=== PATIENT | female | born 1980 | race Caucasian/White ===

== ENCOUNTER 2017-05-23 10:37 | Inpatient (IN) | payer OTHER ==
--- NOTE | 2017-05-23 06:30 | PDHPUP ---
History & Physical Update H&P update statement: This history and physical update is based on an assessment of the patient which was completed after admission or registration (within 24 hours), but prior to the surgery/procedure. H&P update: H&P reviewed & patient examined, no change in patient's condition since H&P completed
[2017-05-23] MEDS ORDERED: ceFAZolin 2 GM/DEXTROSE 100 ML IV ONE (11:11)
[2017-05-23] MEDS ORDERED: LR 1,000 ML IV ONE (11:18)
[2017-05-23] MEDS ORDERED: VANCOMYCIN HCL/NORMAL SALINE 250 ML IV ONE (12:30)
[2017-05-23] MEDS ORDERED: VANCOMYCIN 1 GM in NS 250 ML IV ONE (12:30)
[2017-05-23] MEDS ORDERED: CHLORHEXIDINE GLUC HIBICLENS 118 ML BTL TP ONE (12:40)
[2017-05-23] MEDS ORDERED: THROMBIN (BOVINE) 5,000 UNIT VIAL TP ONE (12:41)
[2017-05-23] MEDS ORDERED: BUPIVACAINE 0.25% 30 ML SDV ONE (12:41)
[2017-05-23] MEDS ORDERED: BACITRACIN 50,000 UNITS/10 ML SYR IRR ONE (12:42)
--- NOTE | 2017-05-23 13:06 | PDANEPAE ---
ANE History of Present Illness 36 yo F with lumbar radiculopathy here for L 2-4 TLIF ANE Past Medical History - Cardiovascular History Hx Hypertension: No Hx Arrhythmias: No Hx Chest Pain: No Hx Coronary Artery / Peripheral Vascular Disease: No Hx CHF / Valvular Disease: No Hx Palpitations: No - Pulmonary History Hx COPD: No Hx Asthma/Reactive Airway Disease: No Hx Recent Upper Respiratory Infection: No Hx Oxygen in Use at Home: No Hx Sleep Apnea: No Sleep Apnea Screening Result - Last Documented: Negative - Neurologic History Hx Cerebrovascular Accident: No Hx Seizures: No Hx Dementia: No Neurologic History Comment: 3 DISCECTOMIES. OCCAS MIGRAINES - Endocrine History Hx Diabetes: No - Renal History Hx Renal Disorders: No - Liver History Hx Hepatic Disorders: Yes Hepatic History Comment: [place] - Neurological & Psychiatric Hx Hx Neurological and Psychiatric Disorders: Yes Neurological / Psychiatric History Comment: ANXIETY & DEPRESSION - Cancer History Hx Cancer: No - Congenital Disorder History Hx Congenital Disorders: No - GI History Hx Gastrointestinal Disorders: No - Other Health History Other Health History: NONE - Chronic Pain History Chronic Pain: Yes (LOWER BACK) - Surgical History Prior Surgeries: L 3/4 TLIF. I&D OF LUMBAR WOUND WITH BRANDON 09/25/14. L4-5, L5- S1 TLIF WITH JJ. 3 DISCECTOMIES L4-5. BILATERAL KNEE SCOPE. LAP [place] ANE Review of Systems - Exercise capacity METS (RN): 6 METS ANE Patient History - Allergies Allergies/Adverse Reactions: cephalexin [From Keflex] Allergy (Severe, Verified 05/23/17 12:06) Anaphylaxis Cephalosporins Allergy (Severe, Verified 05/23/17 12:06) Anaphylaxis amoxicillin Allergy (Intermediate, Verified 04/06/15 19:38) abd pain ceftriaxone Allergy (Verified 04/06/15 19:37) neutropenia doxycycline Allergy (Verified 04/06/15 19:37) neutropenia - Home Medications Home medications: home medication list seen and reviewed Home Medications: Topiramate 50 mg PO DAILY 06/01/15 [Last Taken 06/08/15 09:00] Clonazepam 05/10/17 [Last Taken Unknown] Herbals/Supplements -Info Only 05/10/17 [Last Taken Unknown] Hydrocodon-Acetaminophen 5-325 05/10/17 [Last Taken Unknown] Ibuprofen 05/10/17 [Last Taken Unknown] Robaxin 500 mg (*) 05/10/17 [Last Taken Unknown] Tylenol 05/10/17 [Last Taken Unknown] - NPO status NPO Since - Liquids (Date): 05/22/17 NPO Since - Liquids (Time): 20:00 NPO Since - Solids (Date): 05/22/17 NPO Since - Solids (Time): 20:00 - Anes Hx Anes Hx: no prior problems - Smoking Hx Smoking Status: Never smoked - Alcohol Use Alcohol Use: Rarely - Family Anes Hx Family Anes Hx: none Family Hx Anesthesia Complications: NONE ANE Labs/Vital Signs - Vital Signs Blood Pressure: 119/76 Heart Rate: 74 Respiratory Rate: 18 O2 Sat (%): 96 Height: 160.02 cm Weight: 56.699 kg ANE Physical Exam - Airway Neck exam: FROM Mallampati Score: Class 2 Mouth exam: normal dental/mouth exam - Pulmonary Pulmonary: no respiratory distress, clear to auscultation - Cardiovascular Cardiovascular: regular rate and rhythym, no murmur, rub, or gallop - ASA Status ASA Status: II ANE Anesthesia Plan Anesthesia Plan: general endotracheal anesthesia
[2017-05-23] MEDS ORDERED: MIDAZOLAM 2 MG/2 ML VIAL IVP ONE (13:07)
[2017-05-23] MEDS ORDERED: REMIFENTANIL HCL 1 MG VIAL ONE ×2 (13:11→16:32)
[2017-05-23] MEDS ORDERED: PROPOFOL/EMULSION 500 MG/50 ML BOTTLE IV ONE ×2 (13:11→16:32)
[2017-05-23] MEDS ORDERED: fentaNYL 100 MCG/2 ML INJ ONE ×2 (13:11→18:14)
[2017-05-23] MEDS ORDERED: PROPOFOL 200 MG/20 ML VIAL ONE (13:11)
[2017-05-23] MEDS ORDERED: HYDROCODONE/APAP 5/325 TAB PO PRN (13:28)
[2017-05-23] MEDS ORDERED: MAGNESIUM HYDROXIDE 30 ML UDCUP PO PRN (13:28)
[2017-05-23] MEDS ORDERED: POLYETHYLENE GLYCOL 3350 17 GM PKT PO PRN (13:28)
[2017-05-23] MEDS ORDERED: NALOXONE HCL 0.4 MG/ML INJ IVP PRN ×2 (13:28→18:18)
[2017-05-23] MEDS ORDERED: LACTULOSE 20 GM/30 ML UDCUP PO PRN (13:28)
[2017-05-23] MEDS ORDERED: BISACODYL 10 MG SUPP PR PRN (13:28)
[2017-05-23] MEDS ORDERED: ONDANSETRON 4 MG/2 ML VIAL IVP PRN ×2 (13:28→18:18)
[2017-05-23] MEDS ORDERED: diphenhydrAMINE 25 MG CAP PO PRN (13:28)
[2017-05-23] MEDS ORDERED: PHENYLEPHRINE 10 MG/ML SDV ONE (14:09)
[2017-05-23] MEDS ORDERED: DESFLURANE 240 ML BOTTLE IH ONE (16:50)
[2017-05-23] MEDS ORDERED: HYDROmorphONE/DILAUDID 2 MG/ML INJ ONE (17:42)
[2017-05-23] MEDS: fentaNYL 100 MCG/2 ML INJ IVP PRN ×2 (18:15→18:25)
[2017-05-23] MEDS ORDERED: MEPERIDINE 25 MG/ML SYR IVP PRN (18:18)
[2017-05-23] MEDS ORDERED: OXYCODONE/APAP 5/325 TAB PO PRN (18:18)
--- NOTE | 2017-05-23 18:21 | POSTANESTH ---
Post Anesthetic Evaluation Cardiovascular Status: Normal, Stable, Similar to Pre-Op Cond Respiratory Status: Normal, Stable, Similar to Pre-op Cond. Level of Consciousness/Mental Status: Can Participate in Eval, Alert and Oriented Pain Control: Adequate, Prn Tx Ordered Nausea/Vomiting Control: Adequate, Prn Tx Ordered Complications Possibly Related to Anesthesia: None Noted
--- NOTE | 2017-05-23 18:21 | SOAPPROG ---
SOAP Progress Note Assessment/Plan: Post Op Visit S: Awake and alert. NAD. Pt with expected lower back pain O: AFVSS/PERRLA/EOMI no droop CN 2-12 grossly intact +lt touch 5/5 BUE/BLE = CDI MANJINDER in place A/P: 36 yo female that is s/p L2/3 TLIF and tie in fusion -orders in place -brace fit already -call with any questions or concerns -pt seen by Dr Oakes as well 05/23/17 18:17 Objective: Vital Signs Temp Pulse Resp BP Pulse Ox 37.1 C 74 18 119/76 96 05/23/17 11:33 05/23/17 13:06 05/23/17 13:06 05/23/17 13:06 05/23/17 13:06 ICD10 Worksheet Patient Problems: Problems Problem Status Onset Arthrodesis status Acute Low back pain Acute Lumbosacral stenosis Acute
[2017-05-23] MEDS: HYDROmorphONE/DILAUDID 1 MG/ML SYR IVP PRN ×2 (18:25→18:46)
[2017-05-23] MEDS ORDERED: HYDROmorphONE/DILAUDID 1 MG/ML SYR ONE ×2 (18:25→18:56)
[2017-05-23] MEDS ORDERED: ONDANSETRON 4 MG/2 ML VIAL ONE (18:28)
[2017-05-23] MEDS ORDERED: PROMETHAZINE HCL 25 MG/ML INJ ONE (18:46)
[2017-05-23] MEDS: PROMETHAZINE HCL 25 MG/ML INJ IVP PRN ×2 (18:48→19:03)
[2017-05-23] MEDS ORDERED: DIAZEPAM 10 MG/2 ML SYR ONE (19:14)
[2017-05-23] MEDS ORDERED: SCOPOLAMINE HYDROBROMIDE 1 MG/3 DAYS PATCH TD ONE ×2 (19:14→19:30)
[2017-05-23] MEDS: DIAZEPAM 10 MG/2 ML SYR IVP PRN (19:24)
[2017-05-23] MEDS: NS 1,000 ML IV SCH (20:41)
[2017-05-23] MEDS: HYDROmorphONE/DILAUDID 6 MG/30 ML PCA IV PRN (20:42)
[2017-05-23] MEDS: ACETAMINOPHEN 500 MG TAB PO SCH ×3 (22:19→22:53)
[2017-05-23] MEDS: FAMOTIDINE 20 MG TAB PO SCH (22:20)
[2017-05-23] MEDS: SENNOSIDES/DOCUSATE SODIUM TAB PO SCH (22:20)
[2017-05-24] MEDS: DIAZEPAM 5 MG TAB PO PRN (01:41)
[2017-05-24] MEDS ORDERED: VANCOMYCIN HCL/NORMAL SALINE 250 ML IV ONE (02:00)
[2017-05-24] MEDS ORDERED: NS BOLUS 1000 ML (Wide open) IV ONE (03:24)
[2017-05-24] MEDS: HYDROmorphONE/DILAUDID 6 MG/30 ML PCA IV PRN ×3 (03:48→23:34)
--- NOTE | 2017-05-24 05:40 | GOP ---
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 PROCEDURE PERFORMED: FINDINGS: ESTIMATED BLOOD LOSS: 150 cc. 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 She had a long-standing history of pathology at this level and it was not a surprise, however, it did come sooner than any of us wanted to see. She developed bilateral lumbosa cral radiculopathy left greater than right and terrible low back pain and began to require narcotics to function. 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 Pain got dramatically worse. She was even seen by infectious disease because she had a prior history of Propionibacterium acnes infection from 1 of her prior surgeries but it was felt that she was not currently infected. Their MRI did not suggest any infection. The risk of screw and hardwar e malposition, malfunction, nerve injury, spinal fluid leak, recurrent infection, pseudoarthrosis ad jacent segment disease were discussed. She may have to have surgery at the L1-2 level at some point in the future. She wanted to proceed despite these risks. DESCRIPTION OF PROCEDURE: Patient was taken to the operating room, placed in supine position. Gene ral anesthesia was begun. She was flipped prone on the Chaitanya table. Care was taken to pad all po ints of contact. Her back was sterilely prepped and draped in usual fashion. We actually prepped h er back 8 separate times and allowed it to dry in an effort to avoid recurrent infection. We made a midline incision from the spinous process of L1 down to the spinous process of L4. The subcutaneou s tissue was dissected using Bovie cautery down to the fascia and a subperiosteal dissection was mad e down the inferior lamina of L1, the lamina of L2 was exposed, the L1-2 facet joint was exposed, th e L2 transverse process was exposed. The L3 and L4 pedicle screws were exposed. We removed the sof t tissue above her prior hardware, took a carbide drill bit and cut through the mane between the L3 a nd L4 screws. We then popped the mane out of the tulips. We removed all 4 cap screws at L3 and L4. After cutting the mane, we then removed the L3 screws. These were attained and given back to the pa tient. We then prepped the area around the prior mane for acceptance of a connecting adapter. We pr epared for the connecting adapter by cleaning out the bone around the mane. There was solid posterol ateral fusion mass present on each side. We then attached a stealth reference frame, performed an O -arm spin, and using frameless Stealth stereotaxy, we placed pedicle screws bilaterally at L2. The left pedicle was exceptionally small. We chose a 5 x 45 mm screw. The right pedicle was also very small but we chose a 5.5 mm screw on the right-hand side. We did take additional time for our hardw are and instrumentation in this case because of her pedicle anatomy. We then took 40 mm rods, cut a small notch out of the bottom of the mane, shortening them to about 35 mm each. We inserted the con nector onto the old mane system, transitionally tightened this to hold the old mane, placed a new mane down into the connector and into the Tulip of the new screw. We placed set screws into all of these . Six cut set screws were used; 2 in the connector, 2 in the new screws. We also then replaced the set screws using new set screws and the L4 pedicle screws. We then removed all the soft tissue bon e at L2-3, introduced the operating microscope harvested the inferior L2 spinous process. We preser sandeep the rostral L2 spinous process. We then harvested the entire L3 spinous process that had been p reserved from the prior case, drilled bilateral laminectomies at L2, 3, and harvested all this bone for autologous grafting purposes. We then, under the microscope, opened ligamentum flavum and perfo rmed a decompression. There was very severe spinal stenosis present. We worked our way down and re moved the rostral aspect of the L3 lamina although we did preserve still part of the rostral arch of L3. We decompressed the left and then the right and decompressed from the edge of the thecal sac t o edge of thecal sac. We removed the left L2-3 facet joint complex. We went to the patient's right -hand side where the MRI did suggest that there was disc protrusion on the right-hand side underneat h the traversing L3 nerve root. We swept the nerve root medially and indeed there was very signific ant sub annular bulge at L2-3. We incised the outer wall of the L2-3 disk and removed this sub nay lar bulge and the thecal sac relaxed nicely. We then went to the left-hand side where we swept the thecal sac medially and here too centrally. There was a large subannular disk bulge in the L2-3 dis k and this also was removed. We then incised the disk, removed the disk completely and the cartilag inous endplates. We roughened the subchondral bone to create arthrodesis. We chose an expandable 7 x 23 mm device, packed with bone morphogenic protein, placed bony autograft into the disk space and inserted the device and under fluoroscopic guidance we elevated the device to 11 mm. It is nicely seated in the disk space. We were happy with this location and there was indeed lumbar lordosis pre sent. We then decorticated all remaining posterolateral bone bilaterally, placed bone morphogenic p rotein posterolaterally bilaterally followed by bone autograft. We then placed a subfascial drain, and then closed the incision in multiple layers using Vicryl sutures. The patient tolerated the pro cedure well. POSTOPERATIVE DIAGNOSIS: Removal posterior segmental instrumentation of the lumbar spine from a vanessa or L3 to S1 fusion (92739), posterior lateral intervertebral arthrodesis at L2-3 (04235), instrument ation across a single interspace at L2-3 (86536), spinal stereotaxy, microscope, same incision bone graft harvest, placement of biomechanical intervertebral device L2-3. COMPLICATIONS: None. /[id number]/MODL
[2017-05-24] MEDS: ACETAMINOPHEN 500 MG TAB PO SCH ×3 (06:29→21:41)
[2017-05-24] MEDS ORDERED: clonazePAM 1 MG TAB PO PRN (07:34)
[2017-05-24] MEDS ORDERED: FLUTICASONE NASAL 120 SPRAYS/16 GM MDI EACHNARE PRN (07:34)
[2017-05-24] MEDS ORDERED: PHARMACY PAIN CONSULT 1 EA MISC SCH (07:45)
--- NOTE | 2017-05-24 07:45 | NEUSURGPN ---
Date of Surgery: 05/23/17 Post Op Day: 1 Assessment/Plan: Assessment: 36 yo female that is s/p L2/3 TLIF and tie in fusion POD #1 Plan: -s/p fusion: pt with expected lower back pain, pt with right LE pain as well as LBP at 8/10 -post op xrays pending -brace when out of bed -pain consult ordered from pharmacy -increased Topamax to BID as well as started MSContin in hopes of some pain control -PT/OT ordered -PASTE MIXER LIQUID on at this time -orders in place -pt with some LUE swelling will d/w Dr Oakes about this as well -call with any questions or concerns -pt seen by Dr Oakes as well 05/23/17 18:17 Subjective: Awake and alert. NAD. Eating/drinking and voiding. No f/c/n/v/d. Objective: AFVSS/PERRLA/EOMI no droop CN 2-12 grossly intact +lt touch 5/5 BUE/BLE = CDI MANJINDER in place Neuro Check Frequency: per routine Urinary Catheter in Place: No - Physician Discussed Patient with Dr.: Champ Patient Seen by : Champ Neurosurgery Physical Exam - Vitals, I&O, Labs I and O 05/23/17 05/24/17 05/25/17 05:59 05:59 05:59 Intake Total 3005 Output Total 590 Balance 2415 Weight 56.699 kg Intake: Oral (ml) 5 IV Intake (ml) 3000 Output: Urine (ml) 150 Catheter 150 Estimated Blood Loss (ml) 150 MANJINDER Drain Output (ml) 290 #1 Posterior Back Chaitanya 290 Qureshi Vital Signs Temp Pulse Resp BP Pulse Ox 37.2 C 66 18 97/50 L 99 05/24/17 07:37 05/24/17 07:37 05/24/17 07:37 05/24/17 07:37 05/24/17 07:37 ICD10 Worksheet Patient Problems: Problems Problem Status Onset Arthrodesis status Acute Low back pain Acute Lumbosacral stenosis Acute
[2017-05-24] MEDS: morphINE SR 15 MG TAB PO SCH ×2 (07:54→19:50)
[2017-05-24] MEDS: FAMOTIDINE 20 MG TAB PO SCH ×2 (07:54→19:49)
[2017-05-24] MEDS: SENNOSIDES/DOCUSATE SODIUM TAB PO SCH ×2 (07:55→19:50)
[2017-05-24] MEDS: DIAZEPAM 10 MG/2 ML SYR IVP PRN ×4 (07:56→20:14)
[2017-05-24] MEDS ORDERED: morphINE SR 15 MG TAB PO SCH (09:00)
[2017-05-24] MEDS ORDERED: NON-FORMULARY NEW DRUG (Topiramate [Topiramate] 50 MG) PO SCH ×2 (09:00)
[2017-05-24] MEDS: TOPIRAMATE 25 MG TAB PO SCH ×2 (09:48→19:50)
[2017-05-24] MEDS ORDERED: NS 1,000 ML IV ONE (10:30)
[2017-05-24] MEDS: PROMETHAZINE HCL 25 MG/ML INJ IV PRN ×2 (11:06→17:41)
--- NOTE | 2017-05-24 16:22 | ASMTCASEMG ---
Discharge Plan Comments Coordination Status Comments Notes: Pt had planned sx. OT eval pending. PT rec home vs. outpatient. CM to follow for d/c needs. Date Signed: 05/24/2017 04:21 PM Electronically Signed By:Sarai George
[2017-05-24] MEDS: METHOCARBAMOL 750 MG TAB PO PRN (23:53)
[2017-05-25] MEDS: oxyCODONE IR 5 MG TAB PO PRN ×5 (00:23→21:11)
[2017-05-25] MEDS: PROMETHAZINE HCL 25 MG/ML INJ IV PRN ×3 (00:23→17:52)
[2017-05-25] MEDS: ONDANSETRON DISINTEGRATING 4 MG TAB PO PRN ×2 (03:49→19:30)
[2017-05-25] MEDS: NS 1,000 ML IV SCH (03:50)
[2017-05-25] MEDS: ACETAMINOPHEN 500 MG TAB PO SCH ×3 (05:59→21:10)
[2017-05-25] MEDS: METHOCARBAMOL 750 MG TAB PO PRN ×2 (08:11→17:52)
[2017-05-25] MEDS: morphINE SR 15 MG TAB PO SCH ×4 (08:11→21:11)
[2017-05-25] MEDS ORDERED: oxyCODONE IR 5 MG TAB PO PRN (08:15)
--- NOTE | 2017-05-25 08:18 | NEUSURGPN ---
Date of Surgery: 05/23/17 Post Op Day: 2 Assessment/Plan: Assessment: 36 yo female that is s/p L2/3 TLIF and tie in fusion POD #2 Plan: -post op xrays: hardware in good placement -brace when out of bed -pain consult ordered from pharmacy -increased Topamax to BID. Today 05/25: Increase MS Contin 15 mg to TID and increased frequency of Oxycodone to every 3 hours, attempt to wean SAFETY DIRECTOR today -PT/OT ordered -remove MANJINDER drain -call with any questions or concerns -pt seen by Dr Oakes as well Subjective: Continues to have localized back pain and right anterior thigh pain. Objective: Awake. Alert. PERRL. EOMI Facial expression symmetrical Muscle strength full at 5/5 Sensation intact Incision with dressing c/d/i - Physician Patient Seen by : Champ Neurosurgery Physical Exam - Vitals, I&O, Labs I and O 05/24/17 05/25/17 05/26/17 05:59 05:59 05:59 Intake Total 3105 500 Output Total 690 1685 Balance 2415 -1185 Weight 56.699 kg Intake: Oral (ml) 105 500 IV Intake (ml) 3000 Output: Urine (ml) 250 1625 Catheter 150 Toilet 100 1625 Estimated Blood Loss (ml) 150 MANJINDER Drain Output (ml) 290 60 #1 Posterior Back Chaitanya 290 60 Qureshi Other: Intake Quantity No Yes Sufficient Number of Voids Toilet 1 Vital Signs Temp Pulse Resp BP Pulse Ox 37.3 C 77 16 109/76 96 05/25/17 05:55 05/25/17 08:00 05/25/17 08:00 05/25/17 08:00 05/25/17 08:00 ICD10 Worksheet Patient Problems: Problems Problem Status Onset Arthrodesis status Acute Low back pain Acute Lumbosacral stenosis Acute
[2017-05-25] MEDS: TOPIRAMATE 25 MG TAB PO SCH ×2 (09:27→21:11)
[2017-05-25] MEDS: FAMOTIDINE 20 MG TAB PO SCH ×2 (09:28→21:10)
[2017-05-25] MEDS: SENNOSIDES/DOCUSATE SODIUM TAB PO SCH ×2 (09:28→21:12)
[2017-05-25] MEDS: DIAZEPAM 5 MG TAB PO PRN ×2 (11:43→20:29)
[2017-05-25] MEDS: ACET/CAFFEINE/BUTA FIORICET 1 EACH TAB PO PRN ×2 (13:28→19:39)
[2017-05-25] MEDS ORDERED: MAGNESIUM CITRATE 300 ML BOTTLE PO ONE (17:00)
[2017-05-26] MEDS: oxyCODONE IR 5 MG TAB PO PRN ×5 (00:01→15:36)
[2017-05-26] MEDS: PROMETHAZINE HCL 25 MG/ML INJ IV PRN ×3 (00:02→21:38)
[2017-05-26] MEDS: DIAZEPAM 5 MG TAB PO PRN ×3 (02:37→21:39)
[2017-05-26] MEDS: ONDANSETRON DISINTEGRATING 4 MG TAB PO PRN (02:45)
[2017-05-26] MEDS: ACETAMINOPHEN 500 MG TAB PO SCH ×3 (04:44→20:13)
[2017-05-26] MEDS: SCOPOLAMINE HYDROBROMIDE 1 MG/3 DAYS PATCH TD SCH (05:50)
[2017-05-26] MEDS: SENNOSIDES/DOCUSATE SODIUM TAB PO SCH ×2 (09:06→20:11)
[2017-05-26] MEDS: FAMOTIDINE 20 MG TAB PO SCH ×2 (09:06→20:10)
[2017-05-26] MEDS: morphINE SR 15 MG TAB PO SCH ×3 (09:07→20:11)
[2017-05-26] MEDS: ENOXAPARIN 40 MG/0.4 ML SYR SC SCH (09:07)
[2017-05-26] MEDS: TOPIRAMATE 25 MG TAB PO SCH ×2 (09:07→20:12)
[2017-05-26] MEDS ORDERED: HYDROmorphONE/DILAUDID 2 MG TAB PO ONE (09:45)
--- NOTE | 2017-05-26 12:48 | SOAPPROG ---
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 We tried some dilaudid this morning and that was very helpful in taking the edge off of her pain. We will persist in this and continue supporting her. Plan: 05/26/17 12:47 Subjective: Still terrible lbp and bilateral leg pain but the right leg is really the issue. pain meds are not working well Objective: Vital Signs Temp Pulse Resp BP Pulse Ox 36.8 C 72 16 112/65 94 05/26/17 07:35 05/26/17 07:35 05/26/17 07:35 05/26/17 11:40 05/26/17 11:40 05/25/17 05/26/17 05/27/17 05:59 05:59 05:59 Intake Total 500 1000 Output Total 1685 800 Balance -1185 200 she has good rle strength in IP, quad, ta, pf ehl. knee jerk is ok. ICD10 Worksheet Patient Problems: Problems Problem Status Onset Arthrodesis status Acute Low back pain Acute Lumbosacral stenosis Acute
[2017-05-26] MEDS: HYDROmorphONE/DILAUDID 2 MG TAB PO PRN ×3 (13:00→18:27)
[2017-05-27] MEDS: HYDROmorphONE/DILAUDID 2 MG TAB PO PRN ×8 (04:14→22:12)
[2017-05-27] MEDS: ACETAMINOPHEN 500 MG TAB PO SCH ×3 (04:14→20:32)
[2017-05-27] MEDS: DIAZEPAM 5 MG TAB PO PRN ×4 (04:14→22:13)
[2017-05-27] MEDS: SENNOSIDES/DOCUSATE SODIUM TAB PO SCH ×2 (08:14→20:08)
[2017-05-27] MEDS: TOPIRAMATE 25 MG TAB PO SCH ×2 (08:14→20:08)
[2017-05-27] MEDS: FAMOTIDINE 20 MG TAB PO SCH ×2 (08:14→20:09)
[2017-05-27] MEDS: ENOXAPARIN 40 MG/0.4 ML SYR SC SCH (08:15)
[2017-05-27] MEDS: morphINE SR 15 MG TAB PO SCH ×3 (08:16→22:13)
[2017-05-27] MEDS: ONDANSETRON DISINTEGRATING 4 MG TAB PO PRN ×2 (08:18→18:06)
--- NOTE | 2017-05-27 10:22 | ASMTCMCOM ---
CM Note CM Note Notes: OT recommending HC, PT rec outpt therapy. Met with pt and . Pt prefers to drive to outpt therapy. No other needs identified. Date Signed: 05/27/2017 10:22 AM Electronically Signed By:Joana Bravo
[2017-05-27] MEDS: METHOCARBAMOL 750 MG TAB PO PRN (10:34)
--- NOTE | 2017-05-27 12:00 | SOAPPROG ---
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 She still has a variant of right meralgia paresthetica with pain in the anterior thigh and quad and sensitivity to touch. This is mirrored on the left but right is >> left. We will continue to work on pain control and with therapies. cristino great. Plan: 05/26/17 12:47 05/27/17 11:58 Subjective: Made some progress with oral dilaudid yesterday. Still very significant pain but improved and slept better. Objective: Vital Signs Temp Pulse Resp BP Pulse Ox 37.0 C 80 18 108/66 97 05/27/17 07:48 05/27/17 07:48 05/27/17 07:48 05/27/17 07:48 05/27/17 07:48 05/26/17 05/27/17 05/28/17 05:59 05:59 05:59 Intake Total 1000 1075 Output Total 800 Balance 200 1075 moving legs well. some left leg weakness stable. ICD10 Worksheet Patient Problems: Problems Problem Status Onset Arthrodesis status Acute Low back pain Acute Lumbosacral stenosis Acute
[2017-05-27] MEDS: PROMETHAZINE HCL 25 MG/ML INJ IV PRN (22:15)
[2017-05-28] MEDS: HYDROmorphONE/DILAUDID 2 MG TAB PO PRN ×7 (02:32→22:47)
[2017-05-28] MEDS: DIAZEPAM 5 MG TAB PO PRN ×2 (02:33→19:17)
[2017-05-28] MEDS: ACETAMINOPHEN 500 MG TAB PO SCH ×3 (06:36→22:47)
[2017-05-28] MEDS: ACET/CAFFEINE/BUTA FIORICET 1 EACH TAB PO PRN (08:55)
[2017-05-28] MEDS: FAMOTIDINE 20 MG TAB PO SCH ×2 (08:55→19:16)
[2017-05-28] MEDS: TOPIRAMATE 25 MG TAB PO SCH ×2 (08:56→19:16)
[2017-05-28] MEDS: morphINE SR 15 MG TAB PO SCH ×3 (08:56→22:47)
[2017-05-28] MEDS: SENNOSIDES/DOCUSATE SODIUM TAB PO SCH ×2 (08:56→19:16)
[2017-05-28] MEDS: ENOXAPARIN 40 MG/0.4 ML SYR SC SCH (08:57)
--- NOTE | 2017-05-28 10:23 | SOAPPROG ---
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 She still has a variant of right meralgia paresthetica with pain in the anterior thigh and quad and sensitivity to touch. This is mirrored on the left but right is >> left. We will continue to work on pain control and with therapies. xrayslook great. She showered yesterday and generally is improving. She needed some IV pain meds last night but her need for IV meds is decreasing. We will add a lidocaine patch on the right thigh. Plan: 05/26/17 12:47 05/27/17 11:58 05/28/17 10:22 Subjective: Making progress. Still with terrible right anterior thigh pain. it responds to dilaudid. working with therapies Objective: Vital Signs Temp Pulse Resp BP Pulse Ox 36.7 C 65 15 99/63 L 96 05/28/17 07:29 05/28/17 07:29 05/28/17 07:29 05/28/17 07:29 05/28/17 07:29 05/27/17 05/28/17 05/29/17 05:59 05:59 05:59 Intake Total 1075 Balance 1075 moving legs well ICD10 Worksheet Patient Problems: Problems Problem Status Onset Arthrodesis status Acute Low back pain Acute Lumbosacral stenosis Acute
[2017-05-28] MEDS: ONDANSETRON DISINTEGRATING 4 MG TAB PO PRN ×3 (11:27→18:02)
[2017-05-28] MEDS: LIDOCAINE 5% 1 EA PATCH TD SCH (11:29)
[2017-05-28] MEDS: PROMETHAZINE HCL 25 MG/ML INJ IV PRN (19:19)
[2017-05-28] MEDS: PATCH REMOVAL 1 EA PATCH TD SCH (22:48)
[2017-05-29] MEDS: METHOCARBAMOL 750 MG TAB PO PRN ×3 (05:18→18:29)
[2017-05-29] MEDS: ONDANSETRON DISINTEGRATING 4 MG TAB PO PRN ×3 (05:18→19:44)
[2017-05-29] MEDS: ACETAMINOPHEN 500 MG TAB PO SCH ×3 (05:18→22:23)
[2017-05-29] MEDS: HYDROmorphONE/DILAUDID 2 MG TAB PO PRN ×7 (05:18→19:38)
--- NOTE | 2017-05-29 08:00 | NEUSURGPN ---
Date of Surgery: 05/23/17 Post Op Day: 6 Assessment/Plan: Assessment: 36 yo female that is s/p L2/3 TLIF and tie in fusion Plan: -brace when out of bed -Patient may discharge home today, pain is controlled with PO meds -removed dressing, leave steri strips in place -call with any questions or concerns pt seen by Dr Oakes as well Subjective: Patient still having right quad pain Objective: Awake. Alert. PERRL. EOMI Facial expression symmetrical Muscle strength BLE 5/5 Sensation intact Incision c/d/i Neuro Check Frequency: per routine Urinary Catheter in Place: No - Physician Discussed Patient with : Champ Patient Seen by : Champ Neurosurgery Physical Exam - Vitals, I&O, Labs I and O 05/28/17 05/29/17 05/30/17 05:59 05:59 05:59 Output Total 600 Balance -600 Output: Urine (ml) 600 Toilet 600 Other: Intake Quantity Yes Yes Sufficient Number of Voids Toilet 3 2 Vital Signs Temp Pulse Resp BP Pulse Ox 36.7 C 83 18 96/57 L 93 05/29/17 00:00 05/29/17 00:00 05/29/17 00:00 05/29/17 00:00 05/29/17 00:00 ICD10 Worksheet Patient Problems: Problems Problem Status Onset Arthrodesis status Acute Low back pain Acute Lumbosacral stenosis Acute
[2017-05-29] MEDS: FAMOTIDINE 20 MG TAB PO SCH ×2 (09:30→19:38)
[2017-05-29] MEDS: SENNOSIDES/DOCUSATE SODIUM TAB PO SCH ×2 (09:30→19:37)
[2017-05-29] MEDS: ENOXAPARIN 40 MG/0.4 ML SYR SC SCH (09:30)
[2017-05-29] MEDS: TOPIRAMATE 25 MG TAB PO SCH ×2 (09:30→19:38)
[2017-05-29] MEDS: SCOPOLAMINE HYDROBROMIDE 1 MG/3 DAYS PATCH TD SCH (09:31)
[2017-05-29] MEDS: LIDOCAINE 5% 1 EA PATCH TD SCH (09:31)
[2017-05-29] MEDS: morphINE SR 15 MG TAB PO SCH ×3 (09:46→22:23)
--- NOTE | 2017-05-29 12:28 | ASMTCMCOM ---
CM Note CM Note Notes: Pt medically stable for d/c, no CM d/c needs identified. Date Signed: 05/29/2017 12:27 PM Electronically Signed By:Sarai George
[2017-05-29] MEDS: DIAZEPAM 5 MG TAB PO PRN ×2 (14:16→22:24)
[2017-05-29 15:57] LABS: HEMATOCRIT 32.1 % (38.0-47.0)
[2017-05-29 18:14] LABS: % IMMATURE GRANULYOCYTES 0.3 % (0.0-1.1); ABSOLUTE IMMATURE GRANULOCYTES 0.02 10^3/uL (0.00-0.10); ADD DIFF? NO; ADD MORPH? NO; ADD SCAN? NO; ATYPICAL LYMPHOCYTE FLAG 0 (0-99); FRAGMENT RBC FLAG 0 (0-99); HEMATOCRIT 32.4 % (38.0-47.0); HEMOGLOBIN 10.6 g/dL (12.6-16.3); LEFT SHIFT FLG 0 (0-99); LIPEMIA HEMOLYSIS FLAG 80 (0-99); MEAN CELL HEMOGLOBIN 26.8 pg (27.9-34.1); MEAN CELL HEMOGLOBIN CONCENTR. 32.7 g/dL (32.4-36.7); MEAN PLATELET VOLUME 8.8 fL (8.7-11.7); PLATELET CLUMPS FLAG 10 (0-99); PLATELET COUNT 306 10^3/uL (150-400); RED BLOOD CELL COUNT 3.95 10^6/uL (4.18-5.33); RED CELL DISTRIBUTION WIDTH 12.1 % (11.5-15.2)
[2017-05-29] MEDS: PATCH REMOVAL 1 EA PATCH TD SCH (19:38)
[2017-05-29] MEDS: PROMETHAZINE HCL 25 MG/ML INJ IV PRN (20:57)
[2017-05-29] MEDS: LOPERAMIDE HCL 2 MG CAP PO PRN (22:24)
[2017-05-29 23:06] VITALS: PULSE 83
[2017-05-30] MEDS: HYDROmorphONE/DILAUDID 2 MG TAB PO PRN ×5 (01:10→10:44)
[2017-05-30] MEDS: LOPERAMIDE HCL 2 MG CAP PO PRN ×2 (03:22→10:44)
[2017-05-30] MEDS: ACETAMINOPHEN 500 MG TAB PO SCH (06:28)
[2017-05-30 07:31] VITALS: BP 109/74; RESP 18; TEMP 98.7; O2SAT 98
--- NOTE | 2017-05-30 08:37 | NEUSURGPN ---
Date of Surgery: 05/23/17 Post Op Day: 7 Assessment/Plan: Assessment: 36 yo female that is s/p L2/3 TLIF and tie in fusion Plan: -patient had increased malaise yesterday, mildly elevated crp and sed rate, normal wbc. Dr Oakes discussed results with Dr Sheehan. Patient remains afebrile, incision is CDI -patient has had diarrhea last night, encouraged PO intake to include yogurt with pro-biotics -Hold Senakot -brace when out of bed -Patient may discharge home today, pain is controlled with PO meds -leave steri strips in place -call with any questions or concerns pt seen by Dr Oakes as well Subjective: Patient feeling nauseous Objective: Awake. Alert. PERRL. EOMI Facial expression symmetrical Muscle strength BLE 5/5 Sensation intact Incision c/d/i Neuro Check Frequency: per routine Urinary Catheter in Place: No - Physician Discussed Patient with : Champ Neurosurgery Physical Exam - Vitals, I&O, Labs I and O 05/29/17 05/30/17 05/31/17 05:59 05:59 05:59 Output Total 600 Balance -600 Output: Urine (ml) 600 Toilet 600 Other: Intake Quantity Yes Yes Sufficient Number of Voids Toilet 2 2 Vital Signs Temp Pulse Resp BP Pulse Ox 37.1 C 83 18 109/74 98 05/30/17 07:28 05/29/17 23:05 05/30/17 07:28 05/30/17 07:28 05/30/17 07:28 Laboratory Results 05/29/17 18:12 ICD10 Worksheet Patient Problems: Problems Problem Status Onset Arthrodesis status Acute Low back pain Acute Lumbosacral stenosis Acute
[2017-05-30] MEDS: FAMOTIDINE 20 MG TAB PO SCH (08:39)
[2017-05-30] MEDS: TOPIRAMATE 25 MG TAB PO SCH (08:39)
[2017-05-30] MEDS: morphINE SR 15 MG TAB PO SCH (08:39)
[2017-05-30] MEDS: LIDOCAINE 5% 1 EA PATCH TD SCH (08:41)
[2017-05-30] MEDS: ENOXAPARIN 40 MG/0.4 ML SYR SC SCH (08:41)
[2017-05-30] MEDS: SENNOSIDES/DOCUSATE SODIUM TAB PO SCH (08:46)
[2017-05-30] MEDS ORDERED: GABAPENTIN 100 MG CAP PO SCH (09:00)
--- NOTE | 2017-05-30 09:17 | ASDISCHSUM ---
Discharge Information Plan Status:Home with No Needs Medically Cleared to Leave:05/29/2017 Discharge Date:05/29/2017 CM D/C Disposition:Home, Routine, Self-Care ADT D/C Disposition:Home, Routine, Self-Care Projected Discharge Date:05/29/2017 12:00 AM Transportation at D/C: Discharge Delay Reason: Follow-Up Date:05/29/2017 12:00 AM Discharge Slot: Final Diagnosis: Placement Information Patient Contact Information Contact Name:QIAN Relationship: Address:[address] City:[place] Alternate Phone: [facility]/Zip Code:[place] [address] Email: Financial Information Financial Class:HMO and PPO Plans Primary Plan Desc:[facility] Primary Plan Number:[id number] Secondary Plan Desc: Secondary Plan Number: Assessment Information [facility] Initial CM Assessment Discharge Plan Comments Coordination Status Comments Notes: Pt had planned sx. OT eval pending. PT rec home vs. outpatient. CM to follow for d/c needs. Date Signed: 05/24/2017 04:21 PM Electronically Signed By:Sarai George [facility] CM Progress Note CM Note CM Note Notes: OT recommending HC, PT rec outpt therapy. Met with pt and . Pt prefers to drive to outpt therapy. No other needs identified. Date Signed: 05/27/2017 10:22 AM Electronically Signed By:Joana Bravo [facility] CM Progress Note CM Note CM Note Notes: Pt medically stable for d/c, no CM d/c needs identified. Date Signed: 05/29/2017 12:27 PM Electronically Signed By:Sarai George Intervention Information
[2017-05-30] MEDS: METHOCARBAMOL 750 MG TAB PO PRN (10:43)
== END 2017-05-30 11:08 | disposition home or self-care (01) | DRG 460 ==
LOC: F3E 10:37 → F3N 19:57
PROVIDERS: ADMIT Neurological Surgery; ATTEND Neurological Surgery
PROC: 0QP004Z Removal of Internal Fixation Device from Lumbar Vertebra, Open Approach (ICD-10-PCS; principal; 2017-05-24)
PROC: 0SG00AJ Fusion of Lumbar Vertebral Joint with Interbody Fusion Device, Posterior Approach, Anterior Column, Open Approach (ICD-10-PCS; principal; 2017-05-24)
PROC: 0QB00ZZ Excision of Lumbar Vertebra, Open Approach (ICD-10-PCS; principal; 2017-05-24)
DX: M54.16 Radiculopathy, lumbar region (principal); M48.06 Spinal stenosis, lumbar region; M51.36 Other intervertebral disc degeneration, lumbar region; Z98.1 Arthrodesis status
CPT/HCPCS: 97110-GP; 97116-GP; 97162-GP; 97165-GO; 97530-GP; 97535-GO; C1713; J0171; J0690; J1170; J1650; J2250; J2370; J2405; J2550; J2704; J3010; J3370

== ENCOUNTER 2017-05-31 16:27 | Inpatient (IN) | payer OTHER ==
--- NOTE | 2017-05-31 17:49 | EDPHY ---
H & P Time Seen by Provider: 05/31/17 17:03 HPI/ROS: Chief complaint. Back pain HPI. 36-year-old female had the diskectomy and fusion of the lumbar spine on May 23. She was discharged from the hospital yesterday. Since then she has had increased pain to her low back. Subjective weakness to the left leg. Subjective fever and feels she has had chills. Nausea. Her leg weakness and sciatica were better after her surgery but have now seem to gotten worse again. No bowel or bladder symptoms. No sore throat or cough or chest discomfort or trouble breathing. No unusual leg pain or swelling other than the sciatica. ROS Constitutional. Fever and chills Eyes. no problems with vision ENT. no sore throat, no nasal drainage Cardiovascular. no chest pain Respiratory. no shortness of breath, no cough Abdominal. no abdominal pain, no nausea/vomiting, no diarrhea . no problems urinating MS. low back pain radiating into the left leg. Skin. no rash Lymph. no swollen glands Neuro. Left leg weakness. Difficulty walking. Past Medical/Surgical History: Past medical history depression, spinal stenosis, back surgery Social History: , nonsmoker, no alcohol Smoking Status: Never smoked Physical Exam: General Appearance: Alert well-developed female mild distress vital signs are stable. Heart rate 101. She is afebrile Eyes: Pupils equal and round no pallor or injection. ENT, Mouth: Mucous membranes are moist. Respiratory: There are no retractions, lungs are clear to auscultation. Cardiovascular: Regular rate and rhythm. Gastrointestinal: Abdomen is soft and nontender, no masses, bowel sounds normal. Neurological: Awake and alert, sensory and motor exams grossly normal. Skin: The incision appears without infection. Suture line intact. Musculoskeletal: Neck is supple nontender. Extremities symmetrical, full range of motion. Psychiatric: Patient is oriented X 3, there is no agitation. Constitutional: Initial Vital Signs Temperature (C) 37 C 05/31/17 16:28 Heart Rate 101 H 05/31/17 16:28 Respiratory Rate 18 05/31/17 16:28 Blood Pressure 130/87 H 05/31/17 16:28 O2 Sat (%) 97 05/31/17 16:28 O2 Delivery Mode Room Air Allergies/Adverse Reactions: cephalexin [From Keflex] Allergy (Severe, Verified 05/31/17 16:27) Anaphylaxis Cephalosporins Allergy (Severe, Verified 05/31/17 16:27) Anaphylaxis amoxicillin Allergy (Intermediate, Verified 05/31/17 16:27) abd pain ceftriaxone Allergy (Verified 05/31/17 16:27) neutropenia doxycycline Allergy (Verified 05/31/17 16:27) neutropenia Home Medications: Medication Instructions Recorded Acetaminophen [Tylenol ES 500 mg 500 mg PO Q6 PRN 05/10/17 (*)] Herbals/Supplements -Info Only 1 ea PO DAILY 05/10/17 Methocarbamol [Robaxin 500 mg (*)] 500 mg PO DAILY PRN 05/10/17 clonazePAM [klonoPIN (*)] 1 mg PO DAILY PRN 05/10/17 Fluticasone Nasal [Flonase Nasal 1 sprays NASAL DAILY PRN 05/23/17 [place]] [place]-3 Fatty Acids [Fish Oil 1000 1,000 mg PO TID 05/23/17 mg (*)] Acet/Caffeine/Buta Fioricet 1 each PO Q6HRS PRN #0 tab 05/29/17 [Fioricet (*)] Acetaminophen [Tylenol ES 500 mg 1,000 mg PO Q8HRS #0 tab 05/29/17 (*)] Diazepam [Valium 5 MG (*)] 5 mg PO Q4H PRN #60 tab 05/29/17 Gabapentin [Neurontin 100 MG (*)] 100 mg PO DAILY #60 cap 05/29/17 HYDROmorphone HCL [Dilaudid 2 mg 2 - 4 mg PO Q2 PRN #60 tab 05/29/17 (*)] Lidocaine 5% [Lidoderm 5% Patch 1 ea TD DAILY #14 patch 05/29/17 (*)] Methocarbamol [Robaxin 750 mg (*)] 750 mg PO QID PRN #60 tab 05/29/17 Ondansetron Odt [Zofran Odt 4 mg 4 - 8 mg PO Q6HRS PRN #20 tab 05/29/17 (*)] Scopolamine Hydrobromide 1 patch TD Q3D #10 patch 05/29/17 [Scopolamine Patch] Sennosides/Docusate Sodium 1 - 2 tab PO BID #0 tab 05/29/17 [Senokot-S] Topiramate 50 mg PO DAILY #30 tablet 05/29/17 morphINE SR [Ms Contin/Oramorph 15 15 mg PO TID #60 tab 05/29/17 mg (*)] Medical Decision Making - Diagnostics Imaging Results: Imaging Impressions Lumbar Spine MRI 05/31/17 18:32 Impression: 1. Postoperative changes related to fusion from L2 through S1. 2. There is a small amount of enhancement seen along the posterior aspect of the disk replacement at L5-S1 that is probably postoperative. The degree of enhancement is slightly more at this level than at the other levels, however, this is nonspecific. Early infection is felt to be possible but less likely. Findings discussed with Sebastián Cedeño M.D. at 20:54 hour, 05/31/2017. Please see findings at specific disk levels. MRI without and with contrast shows postop slight edema. There is slight enhancement at L5-S1 that is consistent with postop change. No abscess, no hematoma. No cord compression Procedures: IV normal saline. Dilaudid for pain ED Course/Re-evaluation: I consulted and discussed the case with Dr. Franklin, neurosurgery, who sees the patient in the emergency department 7:25 p.m. patient continues to have pain. Further dose of IV Dilaudid. A 30 p.m. patient continues to be nauseated. IV Phenergan. She is given another L of saline. Re-evaluation 9:00 p.m.--patient is stable. She and I discussed imaging and lab results. We discussed treatment plan. She feels that she cannot go home and is quite concerned about possible continued infection. I consulted and discussed case with Dr. Flores,hospitalist, who will see the patient in the emergency department, and agrees to the admission Differential Diagnosis: I considered postoperative hematoma, cord compression, abscess - Data Points Laboratory Results: Laboratory Results 05/31/17 17:26 05/31/17 17:26 05/31/17 05/31/17 05/31/17 20:57 18:21 17:26 WBC RBC Hgb Hct MCV MCH MCHC RDW Plt Count MPV Neut % (Auto) Lymph % (Auto) [place] % (Auto) Eos % (Auto) Baso % (Auto) Nucleat RBC Rel Count Absolute Neuts (auto) Absolute Lymphs (auto) Absolute Monos (auto) Absolute Eos (auto) Absolute Basos (auto) Absolute Nucleated RBC Immature Gran % Immature Gran # PT INR APTT VBG Lactic Acid 1.0 mmol/L mmol/L (0.7-2.1) Sodium 142 mEq/L mEq/L (134-144) Potassium 3.8 mEq/L mEq/L (3.5-5.2) Chloride 107 mEq/L mEq/L (97-110) Carbon Dioxide 20 mEq/l L mEq/l (22-31) Anion Gap 15 mEq/L mEq/L (8-16) BUN 5 mg/dL L mg/dL (7-23) Creatinine 0.7 mg/dL mg/dL (0.6-1.0) Estimated GFR > 60 Glucose 118 mg/dL H mg/dL (70-100) Calcium 9.8 mg/dL mg/dL (8.5-10.4) Total Bilirubin 0.3 mg/dL mg/dL (0.1-1.4) Urine Color YELLOW Urine Appearance HAZY Urine pH 8.0 H (5.0-7.5) Ur Specific [place] 1.018 (1.002-1.030) Urine Protein NEGATIVE (NEGATIVE) Urine Ketones 1+ H (NEGATIVE) Urine Blood NEGATIVE (NEGATIVE) Urine Nitrate NEGATIVE (NEGATIVE) Urine Bilirubin NEGATIVE (NEGATIVE) Urine Urobilinogen NEGATIVE EU EU (0.2-1.0) Ur Leukocyte Esterase NEGATIVE (NEGATIVE) Urine Glucose NEGATIVE (NEGATIVE) 05/31/17 05/31/17 17:26 17:26 WBC 3.33 10^3/uL L 10^3/uL (3.80-9.50) RBC 4.52 10^6/uL 10^6/uL (4.18-5.33) Hgb 12.1 g/dL L g/dL (12.6-16.3) Hct 36.1 % L % (38.0-47.0) MCV 79.9 fL L fL (81.5-99.8) MCH 26.8 pg L pg (27.9-34.1) MCHC 33.5 g/dL g/dL (32.4-36.7) RDW 12.4 % % (11.5-15.2) Plt Count 468 10^3/uL H D 10^3/uL (150-400) MPV 8.6 fL L fL (8.7-11.7) Neut % (Auto) 66.1 % % (39.3-74.2) Lymph % (Auto) 21.3 % % (15.0-45.0) [place] % (Auto) 9.9 % % (4.5-13.0) Eos % (Auto) 1.2 % % (0.6-7.6) Baso % (Auto) 0.6 % % (0.3-1.7) Nucleat RBC Rel Count 0.0 % % (0.0-0.2) Absolute Neuts (auto) 2.20 10^3/uL 10^3/uL (1.70-6.50) Absolute Lymphs (auto) 0.71 10^3/uL L 10^3/uL (1.00-3.00) Absolute Monos (auto) 0.33 10^3/uL 10^3/uL (0.30-0.80) Absolute Eos (auto) 0.04 10^3/uL 10^3/uL (0.03-0.40) Absolute Basos (auto) 0.02 10^3/uL 10^3/uL (0.02-0.10) Absolute Nucleated RBC 0.00 10^3/uL 10^3/uL (0-0.01) Immature Gran % 0.9 % % (0.0-1.1) Immature Gran # 0.03 10^3/uL 10^3/uL (0.00-0.10) PT 12.6 SEC SEC (12.0-15.0) INR 0.95 (0.83-1.16) APTT 28.9 SEC SEC (23.0-38.0) VBG Lactic Acid Sodium Potassium Chloride Carbon Dioxide Anion Gap BUN Creatinine Estimated GFR Glucose Calcium Total Bilirubin Urine Color Urine Appearance Urine pH Ur Specific [place] Urine Protein Urine Ketones Urine Blood Urine Nitrate Urine Bilirubin Urine Urobilinogen Ur Leukocyte Esterase Urine Glucose Medications Given: Discontinued Medications Hydromorphone HCl (Dilaudid) 0.5 mg IVP EDNOW ONE Stop: 05/31/17 18:03 Last Admin: 05/31/17 18:30 Dose: 0.5 mg Hydromorphone HCl (Dilaudid) 1 mg IVP EDNOW ONE Stop: 05/31/17 19:25 Last Admin: 05/31/17 19:38 Dose: 1 mg Sodium Chloride (Ns) 1,000 mls @ 0 mls/hr IV ONCE ONE; Wide Open PRN Reason: Protocol Stop: 05/31/17 18:54 Last Admin: 05/31/17 19:10 Dose: 1,000 mls Sodium Chloride (Ns) 1,000 mls @ 0 mls/hr IV ONCE ONE PRN Reason: Wide Open Stop: 05/31/17 20:48 Last Admin: 05/31/17 20:53 Dose: 1,000 mls Ondansetron HCl (Zofran) 4 mg IVP EDNOW ONE Stop: 05/31/17 18:03 Last Admin: 05/31/17 18:30 Dose: 4 mg Promethazine HCl (Phenergan) 12.5 mg IVP ONCE ONE Stop: 05/31/17 20:46 Last Admin: 05/31/17 20:53 Dose: 12.5 mg Departure - Departure Disposition: [facility] Inpatient Acute Clinical Impression: Lumbar radiculopathy, acute Condition: Fair Referrals: Sabrina Sunshine NP [Primary Care Provider] - As per Instructions
[2017-05-31] MEDS ORDERED: HYDROmorphONE/DILAUDID 1 MG/ML INJ IVP ONE ×2 (18:02→19:24)
[2017-05-31] MEDS ORDERED: ONDANSETRON 4 MG/2 ML VIAL IVP ONE (18:02)
[2017-05-31 18:13] LABS: % IMMATURE GRANULYOCYTES 0.9 % (0.0-1.1); ABSOLUTE IMMATURE GRANULOCYTES 0.03 10^3/uL (0.00-0.10); ADD DIFF? NO; ADD MORPH? NO; ADD SCAN? NO; ATYPICAL LYMPHOCYTE FLAG 60 (0-99); FRAGMENT RBC FLAG 0 (0-99); HEMATOCRIT 36.1 % (38.0-47.0); HEMOGLOBIN 12.1 g/dL (12.6-16.3); LEFT SHIFT FLG 10 (0-99); LIPEMIA HEMOLYSIS FLAG 80 (0-99); MEAN CELL HEMOGLOBIN 26.8 pg (27.9-34.1); MEAN CELL HEMOGLOBIN CONCENTR. 33.5 g/dL (32.4-36.7); MEAN CELL VOLUME 79.9 fL (81.5-99.8); MEAN PLATELET VOLUME 8.6 fL (8.7-11.7); PLATELET CLUMPS FLAG 10 (0-99); PLATELET COUNT 468 10^3/uL (150-400); RED BLOOD CELL COUNT 4.52 10^6/uL (4.18-5.33); RED CELL DISTRIBUTION WIDTH 12.4 % (11.5-15.2)
[2017-05-31 18:19] LABS: APTT 28.9 SEC (23.0-38.0); INR 0.95 (0.83-1.16); PROTIME(PATIENT) 12.6 SEC (12.0-15.0)
[2017-05-31 18:20] LABS: ANION GAP 15 mEq/L (8-16); BILIRUBIN,TOTAL 0.3 mg/dL (0.1-1.4); CALCIUM 9.8 mg/dL (8.5-10.4); CARBON DIOXIDE 20 mEq/l (22-31); CHLORIDE 107 mEq/L (97-110); CREATININE 0.7 mg/dL (0.6-1.0); GLOMERULAR FILTRATION RATE > 60; GLUCOSE 118 mg/dL (70-100); POTASSIUM 3.8 mEq/L (3.5-5.2); SODIUM 142 mEq/L (134-144)
[2017-05-31] MEDS ORDERED: NS 1,000 ML IV ONE ×2 (18:53→20:47)
[2017-05-31] MEDS ORDERED: GADOBUTROL 10 ML VIAL IVP ONE (19:56)
--- NOTE | 2017-05-31 20:36 | GCON ---
[f rep st] CONSULTATION DATE OF CONSULTATION: 05/31/2017 CONSULTING SERVICE: Dr. Cedeño, Emergency Medicine REASON FOR CONSULTATION: Status post lumbar fusion one week ago here with malaise and lower extremit y complaints. 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 Jonas Oakes, who was approximately 1 week status post L2-3 TLIF with extension of an L3-S1 fusion for adjacent segment disk disease at L2-3. The patient last had surgery in [address] Oakes. State s at that time, approximately 1 week following the surgery, she had a P. acnes infection to develop. She states that she has had malaise, sense of chills and subjective fevers at home that were very si milar to the symptoms she had last operation with her infection. She also feels "crummy." She moon d her hot-line earlier today and spoke to Dr. Oakes's nurse practitioner, Joyce Araujo, who shanique mmended she come to the hospital for evaluation. Upon arrival, she is afebrile without a leukocytosi s and is currently pending an MRI of the lumbar spine as she is complaining of some worsening buttock and leg pain that she did not have before surgery. PAST MEDICAL HISTORY: Per HPI: Depression, spinal stenosis. ALLERGIES: To many antibiotics including cephalexin, cephalosporins, amoxicillin, ceftriaxone and do xycycline. MEDICATIONS: On arrival include Dilaudid and Zofran. Home medications: Fish oil, Fioricet, Extra-Strength Tylenol, Valium, Neurontin, Lidoderm patches, R obaxin, scopolamine, Zofran, Senokot S, Topamax and p.o. morphine. 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 . 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 She is a nonsmoker. Denies illic its or alcohol. FAMILY HISTORY: Noncontributory. No history of spinal fusion that she knows of. REVIEW OF SYSTEMS: Ten points reviewed and are negative other than mentioned in HPI. LABORATORY: White blood cell 3.33 with a total percent neutrophils of 66, which is normal, and absol alec neutrophil count of 2.20, which is also normal. Hemoglobin 12. Platelet count is 468, slightly elevated. PT/INR 12.6 and 0.95. PTT 28.9. Lactic acid 1. Sodium 142, potassium 3.8, BUN and creat inine 5.7 and 0.7, glucose 118. PHYSICAL EXAMINATION: VITAL SIGNS: Temperature 37 degrees Celsius, heart rate 101, respiratory rate 18, blood pressure 130/87, saturation 97% on room air. NEURO: Awake, alert and oriented x3. Appea rs stated age. She is anxious and moving her feet around constantly. She has fluent, normal speech and normal cranial nerves. She has normal strength in all extremities without a focal deficit. She has normal sensory to light touch and pinprick. She has normal deep tendon reflexes throughout. Gai t is deferred. Her incision is well healed with Steri-Strips in place. There is no pain on palpatio n, erythema or drainage present. IMAGING: Patient currently does not have any postoperative imaging for review. I have reviewed her intraoperative and postoperative x-rays done on the last hospital stay. She has signs of well-seated hardware from L2-S1 with interbody grafts at the fused segments as well. IMPRESSION AND PLAN: The patient is a 36-year-old female with a recent L2-3 transforaminal lumbar in terbody fusion for extension of L3-S1 fusion for adjacent segment disk disease with Dr. Champ gallegos imately 1 week ago. She is presenting with subjective back pain, new lower extremity and buttock com plaints, and general malaise at home, which is consistent with how she fell 2 years ago after her las t surgery when she states she developed a Propionibacterium acnes infection. She does not have any o bjective findings to support infection at this time. Her wound is well-appearing. She does not have a leukocytosis and she is afebrile here in the emergency department. An MRI is pending as are urine and blood cultures. If the MRI is not concerning, it would be fine with me if the patient goes home where she can continue to observe her own symptoms and update the office tomorrow via phone call. H owever, I get the sense that we will likely need to admit her for medical management of her malaise, IV fluids. I have discussed this with Dr. Cedeño. Regardless of the disposition, this will partly be determined by the appearance of her postoperative MRI, which is pending. I will follow up on this . Thank you for this consult. We are following along. Fili #: [id number]/[id number]
[2017-05-31] MEDS ORDERED: PROMETHAZINE HCL 25 MG/ML INJ IVP ONE (20:45)
[2017-05-31 21:13] LABS: COLOR YELLOW; LEUKOCYTE ESTERASE,URINE NEGATIVE (NEGATIVE); NITRITE,URINE NEGATIVE (NEGATIVE)
[2017-05-31] MEDS ORDERED: HYDROmorphONE/DILAUDID 1 MG/ML INJ IVP PRN (21:51)
[2017-05-31] MEDS ORDERED: oxyCODONE IR 5 MG TAB PO PRN (21:51)
[2017-05-31] MEDS ORDERED: ACETAMINOPHEN 325 MG TAB PO PRN (21:51)
[2017-05-31] MEDS ORDERED: ONDANSETRON DISINTEGRATING 4 MG TAB PO PRN (21:51)
[2017-05-31] MEDS ORDERED: FLUTICASONE NASAL 120 SPRAYS/16 GM MDI EACHNARE PRN (21:59)
[2017-05-31] MEDS ORDERED: clonazePAM 1 MG TAB PO PRN (21:59)
[2017-05-31] MEDS ORDERED: HYDROmorphONE/DILAUDID 1 MG/ML INJ ONE (22:31)
--- NOTE | 2017-05-31 22:32 | GHP ---
[f rep st] HISTORY AND PHYSICAL DATE OF ADMISSION: 05/31/2017 CHIEF COMPLAINT: Feeling poorly. HISTORY OF PRESENT ILLNESS: This is a 36-year-old female who was discharged from the hospital yester day after spending a week in the hospital for a spinal surgery. Re-presents today. She had a spinal surgery in [address] Oakes. This was complicated by an infection with P acnes. 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 She has significant malaise, sweats, and chills without fever, some nausea with no vomiting. She also n otes that her left leg is weaker than it was when she left the hospital. She is concerned that she m ay have a recurrence of P acnes. She followed with Dr. Sheehan of Infectious Disease. PAST MEDICAL HISTORY: 1. Degenerative disk disease. 2. Depression. PAST SURGICAL HISTORY: As above. MEDICATIONS: Please see medication reconciliation. ALLERGIES: Keflex, cephalosporin, amoxicillin, Rocephin, doxycycline. FAMILY HISTORY: She denies having any family history. SOCIAL HISTORY: She does not drink or smoke. 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 REVIEW OF SYSTEMS: A 10-point review of systems is conducted and is negative, except per HPI. PHYSICAL EXAMINATION: VITAL SIGNS: Blood pressure 118/76, heart rate 79, respiration rate 18, satur ating 97% on room air. Temperature is 37.3. GENERAL: This patient appears uncomfortable and is fabián ewhat tearful. HEENT: Normocephalic, atraumatic. CARDIOVASCULAR: Regular rate and rhythm. No mur murs, rubs, or gallops. PULMONARY: Lungs clear to auscultation bilaterally. ABDOMEN: Soft, nonten sebastián, nondistended. SKIN: No rash. : No [place]. NEUROLOGIC: Alert and oriented x3. Her left to es notably lack significant movement. PSYCHIATRIC: Tearful. BACK: Her incision looks clean, dry, and intact. It has Steri-Strips over it. There is no surrounding erythema. LABORATORY DATA: White count is 3.3, hemoglobin is 12.1, platelets are 468. INR is 0.15. Lactate i s negative. Basic metabolic panel shows bicarb of 20, otherwise normal. DATA: 1. I discussed this with Dr. Cedeño. Will admit for symptom control. 2. I reviewed her MRI. This shows postoperative changes. There is a small amount of enhancement wh ich is nonspecific from L5-S1. IMPRESSION/PLAN: A 36-year-old female who is now about 1 week post L2-3 transforaminal lumbar interb magen fusion, presents with malaise and worsening pain. 1. Malaise, chills, and sweats at home in the setting of Propionibacterium acnes: I have drawn an E SR and CRP. I will request an Infectious Disease consult for tomorrow, given her history of Propioni bacterium acnes infection. She had significant reactions to many antibiotics during her last course of treatment. 2. Pain: Will provide her with both oral as well as intravenous options for pain control. 3. Status post recent transforaminal lumbar interbody fusion: Appreciate Neurosurgery's assistance and involvement. /[id number]/MODL
[2017-05-31 22:36] LABS: SEDIMENTATION RATE 30 MM/HR (0-20)
[2017-05-31] MEDS: TEMAZEPAM 15 MG CAP PO PRN (22:49)
[2017-05-31] MEDS: ACETAMINOPHEN 500 MG TAB PO SCH (22:49)
[2017-05-31] MEDS: morphINE SR 15 MG TAB PO SCH (22:49)
[2017-06-01] MEDS: HYDROmorphONE/DILAUDID 2 MG TAB PO PRN ×4 (03:39→15:31)
[2017-06-01] MEDS: DIAZEPAM 5 MG TAB PO PRN ×3 (03:40→23:54)
[2017-06-01 04:49] LABS: % IMMATURE GRANULYOCYTES 0.6 % (0.0-1.1); ABSOLUTE IMMATURE GRANULOCYTES 0.02 10^3/uL (0.00-0.10); ADD DIFF? NO; ADD MORPH? NO; ADD SCAN? NO; ATYPICAL LYMPHOCYTE FLAG 80 (0-99); FRAGMENT RBC FLAG 0 (0-99); HEMATOCRIT 30.1 % (38.0-47.0); HEMOGLOBIN 9.7 g/dL (12.6-16.3); LEFT SHIFT FLG 0 (0-99); LIPEMIA HEMOLYSIS FLAG 80 (0-99); MEAN CELL HEMOGLOBIN 26.4 pg (27.9-34.1); MEAN CELL HEMOGLOBIN CONCENTR. 32.2 g/dL (32.4-36.7); MEAN CELL VOLUME 81.8 fL (81.5-99.8); MEAN PLATELET VOLUME 8.1 fL (8.7-11.7); PLATELET CLUMPS FLAG 0 (0-99); PLATELET COUNT 316 10^3/uL (150-400); RED BLOOD CELL COUNT 3.68 10^6/uL (4.18-5.33); RED CELL DISTRIBUTION WIDTH 12.6 % (11.5-15.2)
[2017-06-01 05:08] LABS: ALANINE AMINOTRANSFERASE 68 IU/L (9-52); ALBUMIN 2.7 g/dL (3.5-5.0); ALKALINE PHOSPHATASE 52 IU/L (38-126); ANION GAP 6 mEq/L (8-16); ASPARTATE AMINOTRANSFERASE 51 IU/L (14-46); BILIRUBIN,TOTAL 0.2 mg/dL (0.1-1.4); CALCIUM 8.8 mg/dL (8.5-10.4); CARBON DIOXIDE 20 mEq/l (22-31); CHLORIDE 114 mEq/L (97-110); CREATININE 0.8 mg/dL (0.6-1.0); GLOMERULAR FILTRATION RATE > 60; GLUCOSE 91 mg/dL (70-100); SODIUM 140 mEq/L (134-144); TOTAL PROTEIN 5.4 g/dL (6.3-8.2)
[2017-06-01] MEDS: ACETAMINOPHEN 500 MG TAB PO SCH ×3 (06:12→20:01)
[2017-06-01] MEDS: ONDANSETRON 4 MG/2 ML VIAL IVP PRN (06:15)
--- NOTE | 2017-06-01 07:41 | NEUSURGPN ---
Assessment/Plan: 36F 9 days post op from an L23 extension of fusion who had prior propionibacterium acnes infection who presents with malaise, night sweats, new complaint of left leg and buttock pain and MRI that is not revealing for infection or stenosis at this point. MRI does not explain her malaise or toe dysfunction. visually her wound is not suspicious for infection at this time. -no NS intervention needed at this time -Medicine workup for infection and malaise, if negative recommend sending home and we will continue to follow pt at her two week post op and monitor for any changes at home. -follow wound with daily wound checks. -PT/OT for buttock pain NS will f/u peripherally at this point. Please let us know if there are any new concerns. dw Dr. Franklin Subjective: complaint of chills, sweats, malaise, as well as pain in her left glut and leg that was not present prior to surgery. c/o of some decrease in her toe strength and agility. Objective: aaox3, nad, appears sweaty PEARLA, EOMI MAEx4, BLE 5/5 except 4+/5 EHL on the left compared to the right +LT Incision covered with steri strips, removal shows no redness, erythema, swelling , discharge, deep fluid pocket. wound is CDI. - Physician Discussed Patient with Dr.: Franklin Neurosurgery Physical Exam - Vitals, I&O, Labs I and O 05/31/17 06/01/17 06/02/17 05:59 05:59 05:59 Intake Total 2780 Output Total 550 200 Balance 2230 -200 Intake: Oral (ml) 250 IV Infused (ml) 2530 Ns 1,000 ml @ 100 mls/hr 1000 IV CONT ADI Rx#: [id number] Output: Urine (ml) 550 200 Toilet 550 200 Other: Number of Voids Toilet 1 Vital Signs Temp Pulse Resp BP Pulse Ox 36.6 C 60 15 118/66 95 06/01/17 00:00 06/01/17 00:00 06/01/17 00:00 06/01/17 00:00 06/01/17 00:00 Laboratory Results 06/01/17 04:42 06/01/17 04:42 ICD10 Worksheet Patient Problems: Problems Problem Status Onset Lumbar radiculopathy, acute Acute Arthrodesis status Acute Low back pain Acute Lumbosacral stenosis Acute
[2017-06-01] MEDS: NS 1,000 ML IV SCH ×3 (08:15→20:02)
[2017-06-01] MEDS: GABAPENTIN 100 MG CAP PO SCH (09:35)
[2017-06-01] MEDS: morphINE SR 15 MG TAB PO SCH ×3 (09:35→20:05)
[2017-06-01] MEDS: LIDOCAINE 5% 1 EA PATCH TD SCH (09:56)
[2017-06-01] MEDS: SENNOSIDES/DOCUSATE SODIUM TAB PO SCH ×2 (09:56→20:01)
[2017-06-01] MEDS: PROMETHAZINE HCL 25 MG/ML INJ IVP PRN ×3 (09:57→23:51)
[2017-06-01] MEDS: TOPIRAMATE 25 MG TAB PO SCH (11:10)
--- NOTE | 2017-06-01 15:15 | HOSPPROG ---
Hospitalist Progress Note Assessment/Plan: 36 yo F w/hx of recent L2/3 TLIF and prior issue with infected hardware post l4- s1 fusion # malaise/chills/sweats: continued overnight without real improvement per her report, has been afebrile and vital signs essentially normal other than brief tachycardia that resolved. Cultures pending with ngtd. WBC slightly low. NSG does not feel that this represents a post op wound infection. ID consulted. UA negative, will check influenza. # recent l2/l3 TLIF: personally reviewed lumbar mri, most c/w postoperative changes but early infection noted to be a possibility as well per radiology. Again, nsg following and feels this is unlikely. # radicular pain: patient notes left sided low back pain radiating to her left anterior thigh that has gotten worse since surgery, again NSG following and aware and felt to be likely normal post operative sxs. pt/ot. 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 Old records reviewed and summarized as above. Subjective: patient notes that she still feels poorly today, is having chills/ sweats and feels exhausted, has pain in her leg Objective: Vital Signs Temp Pulse Resp BP Pulse Ox 36.9 C 74 14 93/70 L 96 06/01/17 08:00 06/01/17 08:00 06/01/17 08:00 06/01/17 08:00 06/01/17 08:00 Laboratory Results 06/01/17 04:42 06/01/17 04:42 05/31/17 06/01/17 06/02/17 05:59 05:59 05:59 Intake Total 2780 Output Total 550 1100 Balance 2230 -1100 PT 12.6 SEC (12.0-15.0) 05/31/17 17:26 INR 0.95 (0.83-1.16) 05/31/17 17:26 awake alert mild distress anicteric op clear rrr no mrg cta b soft nt nd no cce warm dry well perfused oriented appropriate anxious ICD10 Worksheet Patient Problems: Problems Problem Status Onset Lumbar radiculopathy, acute Acute Arthrodesis status Acute Low back pain Acute Lumbosacral stenosis Acute
--- NOTE | 2017-06-01 16:26 | PCMIDPN ---
Assessment/Plan: Complaints of worsen L leg weakness, chills/sweats following recent surgery for severe spinal stenosis L2-3. MRI was personally reviewed by me with radiology and upper lumbar spine shows expected findings post op but some mild enhancement at L5-S1, but this was present to some extent on prior MRI and changes would not completely explain symptoms. At this point not enough evidence to suggest infection to warrant surgical exploration at this point - recognizing last presentation of infection was unexpected as well - a little over a week after L5-S1 procedure. Very slight elevation CRP/ESR would be expected post op. WBC low. No URI symptoms. --reasonable to R/o Flu with flu PCR, cancel rapid test --hold antibiotics --unable to aspirate L5-S1 radiologically --case discussed with Dr. Regalado x2 --would recommend repeat imaging in 7-10 days --visited patient 3x to discuss these plans. Time 60 min >50 % time spent with education and counseling of patient, regarding above issue and coordination of care with neurosurg Subjective: 36 yo woman known to ID service with h/o of deep wound due to p acnes 09/25/14 from surgery on L4-5, L5-S1 on 09/16/14 s/p IV ceftriaxone x 6 weeks. Patient had surgery L2-3 on 05/23/17 and post operatively has had significant amount of pain L glut, quad and L toe weakness and leg weakness to lesser extent compared to toes. 05/29/17 patient describes feels increase malaise and fatigue but denies sore throat, ALVAREZ, rhinorrhea, congestion, rash, GI symptoms. 05/30/17 she slept all day and was unable to walk to bathroom she was so weak. 05/31/17 she developed sweats and chills no fever. Prior to surgery she had some L leg weakness but feels current weakness is significantly worse. Also had R quad pain prior to surgery. Objective: Vital Signs Temp Pulse Resp BP Pulse Ox 36.9 C 74 14 120/76 98 06/01/17 16:00 06/01/17 16:00 06/01/17 16:00 06/01/17 16:00 06/01/17 16:00 Laboratory Results 06/01/17 04:42 06/01/17 04:42 05/31/17 06/01/17 06/02/17 05:59 05:59 05:59 Intake Total 2780 Output Total 550 1100 Balance 2230 -1100 ESR 30 MM/HR (0-20) H 05/31/17 17:26 C-Reactive Protein 19.7 mg/L (<10.0) H 05/31/17 17:26 - Physical Exam General Appearance: alert, thin, non-toxic EENT: pale conjunctiva, No scleral icterus Respiratory: lungs clear, No accessory muscle use Cardiac/Chest: regular rate, rhythm Extremities: No pedal edema, No inflammation, No swelling Abdomen: non-tender, soft Pelvic Exam: No crump Back: other (incision healing well, steri-strips in place, no drainage, no erythema) Neuro/Psych: alert, depressed affect ICD10 Worksheet Patient Problems: Problems Problem Status Onset Lumbar radiculopathy, acute Acute Arthrodesis status Acute Low back pain Acute Lumbosacral stenosis Acute
[2017-06-01] MEDS: traMADol 50 MG TAB PO PRN ×2 (19:55→23:54)
[2017-06-02 00:25] VITALS: O2SAT 97
[2017-06-02] MEDS: ACETAMINOPHEN 500 MG TAB PO SCH ×3 (05:28→19:52)
[2017-06-02] MEDS: PROMETHAZINE HCL 25 MG/ML INJ IVP PRN ×3 (05:28→19:43)
[2017-06-02] MEDS: DIAZEPAM 5 MG TAB PO PRN ×2 (05:28→19:43)
[2017-06-02] MEDS: traMADol 50 MG TAB PO PRN ×4 (05:28→19:43)
[2017-06-02] MEDS ORDERED: SCOPOLAMINE HYDROBROMIDE 1 MG/3 DAYS PATCH TD SCH (08:00)
[2017-06-02] MEDS: TOPIRAMATE 25 MG TAB PO SCH (08:47)
[2017-06-02] MEDS: GABAPENTIN 100 MG CAP PO SCH (08:47)
[2017-06-02] MEDS: SENNOSIDES/DOCUSATE SODIUM TAB PO SCH ×2 (08:47→19:52)
[2017-06-02] MEDS: morphINE SR 15 MG TAB PO SCH ×3 (08:51→19:52)
[2017-06-02] MEDS: LIDOCAINE 5% 1 EA PATCH TD SCH (08:51)
[2017-06-02] MEDS: ACET/CAFFEINE/BUTA FIORICET 1 EACH TAB PO PRN ×2 (09:24→16:16)
[2017-06-02] MEDS: HYDROCODONE/APAP 5/325 TAB PO PRN ×3 (10:50→18:32)
[2017-06-02] MEDS: ONDANSETRON 4 MG/2 ML VIAL IVP PRN ×2 (10:50→18:33)
[2017-06-02] MEDS: METHOCARBAMOL 750 MG TAB PO PRN ×2 (10:52→16:51)
--- NOTE | 2017-06-02 13:43 | HOSPPROG ---
Hospitalist Progress Note Assessment/Plan: 36 yo F w/hx of recent L2/3 TLIF and prior issue with infected hardware post l4- s1 fusion # malaise/chills/sweats: continued overnight and patient states she still feels terrible, has been afebrile and vital signs essentially normal other than brief tachycardia that resolved. Cultures pending with ngtd. WBC slightly low. NSG does not feel that this represents a post op wound infection. ID consulted. UA negative, influenza pcr negative. She notes that she did feel a bit better when she skipped MS contin and other opiates in favor or tramadol and query if she may be having side effects to the opiates # recent l2/l3 TLIF: personally reviewed lumbar mri, most c/w postoperative changes, nsg and ID both feel that this does not likely represent in fection # radicular pain: patient notes left sided low back pain radiating to her left anterior thigh that has gotten worse since surgery, again NSG following and aware and felt to be likely normal post operative sxs. pt/ot. 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, was on terminal gauger abx with retained hardware and followed by [facility] # observation status Subjective: no significant overnight events, patient continues to feel poorly today, no fevers overnight Objective: Vital Signs Temp Pulse Resp BP Pulse Ox 37.0 C 62 14 101/61 97 06/02/17 08:21 06/02/17 08:21 06/02/17 08:21 06/02/17 08:21 06/02/17 08:21 Laboratory Results 06/01/17 04:42 06/01/17 04:42 06/01/17 06/02/17 06/03/17 05:59 05:59 05:59 Intake Total 2780 250 Output Total 550 1100 400 Balance 2230 -850 -400 PT 12.6 SEC (12.0-15.0) 05/31/17 17:26 INR 0.95 (0.83-1.16) 05/31/17 17:26 awake alert mild distress anicteric op clear rrr no mrg cta b soft nt nd no cce warm dry well perfused oriented appropriate anxious ICD10 Worksheet Patient Problems: Problems Problem Status Onset Lumbar radiculopathy, acute Acute Arthrodesis status Acute Low back pain Acute Lumbosacral stenosis Acute
[2017-06-02] MEDS ORDERED: PATCH REMOVAL 1 EA PATCH TD SCH (21:00)
[2017-06-02] MEDS: TEMAZEPAM 15 MG CAP PO PRN (21:04)
[2017-06-03 04:45] LABS: % IMMATURE GRANULYOCYTES 1.7 % (0.0-1.1); ABSOLUTE IMMATURE GRANULOCYTES 0.05 10^3/uL (0.00-0.10); ADD DIFF? NO; ADD MORPH? NO; ADD SCAN? NO; ATYPICAL LYMPHOCYTE FLAG 90 (0-99); FRAGMENT RBC FLAG 0 (0-99); HEMATOCRIT 29.8 % (38.0-47.0); HEMOGLOBIN 9.9 g/dL (12.6-16.3); LEFT SHIFT FLG 10 (0-99); LIPEMIA HEMOLYSIS FLAG 80 (0-99); MEAN CELL HEMOGLOBIN CONCENTR. 33.2 g/dL (32.4-36.7); MEAN CELL VOLUME 81.2 fL (81.5-99.8); MEAN PLATELET VOLUME 8.2 fL (8.7-11.7); PLATELET CLUMPS FLAG 0 (0-99); PLATELET COUNT 415 10^3/uL (150-400); RED BLOOD CELL COUNT 3.67 10^6/uL (4.18-5.33); RED CELL DISTRIBUTION WIDTH 12.5 % (11.5-15.2)
[2017-06-03 05:00] LABS: ANION GAP 11 mEq/L (8-16); CARBON DIOXIDE 19 mEq/l (22-31); CHLORIDE 108 mEq/L (97-110); CREATININE 0.8 mg/dL (0.6-1.0); GLOMERULAR FILTRATION RATE > 60; GLUCOSE 81 mg/dL (70-100); POTASSIUM 3.8 mEq/L (3.5-5.2); SODIUM 138 mEq/L (134-144)
[2017-06-03] MEDS: METHOCARBAMOL 750 MG TAB PO PRN ×2 (05:05→12:11)
[2017-06-03] MEDS: HYDROCODONE/APAP 5/325 TAB PO PRN ×3 (05:05→13:52)
[2017-06-03] MEDS: PROMETHAZINE HCL 25 MG/ML INJ IVP PRN (05:05)
[2017-06-03] MEDS: ACETAMINOPHEN 500 MG TAB PO SCH (05:40)
[2017-06-03] MEDS: GABAPENTIN 100 MG CAP PO SCH (07:54)
[2017-06-03] MEDS: TOPIRAMATE 25 MG TAB PO SCH (07:54)
[2017-06-03] MEDS: traMADol 50 MG TAB PO PRN ×3 (07:54→16:49)
[2017-06-03 08:00] VITALS: TEMP 98.9
[2017-06-03] MEDS: LIDOCAINE 5% 1 EA PATCH TD SCH (08:04)
[2017-06-03] MEDS: morphINE SR 15 MG TAB PO SCH (08:04)
[2017-06-03] MEDS: SENNOSIDES/DOCUSATE SODIUM TAB PO SCH (08:04)
[2017-06-03] MEDS ORDERED: PROMETHAZINE HCL 25 MG TAB PO PRN (12:21)
--- NOTE | 2017-06-03 12:22 | HOSPPROG ---
Hospitalist Progress Note Assessment/Plan: 36 yo F w/hx of recent L2/3 TLIF and prior issue with infected hardware post l4- s1 fusion # malaise/chills/sweats: continued overnight and patient states she still feels quite badly though perhaps less nauseated. She states that these sxs are now unchanged whether she takes norco or dilaudid. She remains afebrile, cultures remain negative. Suspect this is simply a post operative recovery reaction secondary to pain and pain medications. Patient remains anxious that this may be an occult infectious process and have asked ID to eval her again to be sure we aren't missing anything or to offer reassurance. # recent l2/l3 TLIF: personally reviewed lumbar mri, most c/w postoperative changes, nsg and ID both feel that this does not likely represent infection # radicular pain: patient notes left sided low back pain radiating to her left anterior thigh that has gotten worse since surgery, NSG aware and feels this will improve with time, will increase gabapentin dose and continue prn norco and robaxin--she has stopped taking ms contin as well as dilaudid and will dc those # nausea: continue prn anti emetics, seems that phenergan is most effective # hx of p. acnes hardware infection: in 2015 s/p l4-s1 fusion, was on rn long term care abx with retained hardware and followed by [facility] # migraine: will continue prn fioricet # IP status, will hopefully feel well enough to dc today or in the am Subjective: no significant overnight events, patient notes she still is having issues with malaise, nausea Objective: Vital Signs Temp Pulse Resp BP Pulse Ox 37.2 C 66 18 105/73 97 06/03/17 07:59 06/03/17 07:59 06/03/17 07:59 06/03/17 07:59 06/02/17 23:47 Laboratory Results 06/03/17 04:30 06/03/17 04:30 06/02/17 06/03/17 06/04/17 05:59 05:59 05:59 Intake Total 250 1300 Output Total 1100 400 Balance -850 900 PT 12.6 SEC (12.0-15.0) 05/31/17 17:26 INR 0.95 (0.83-1.16) 05/31/17 17:26 awake alert mild distress anicteric op clear rrr no mrg cta b soft nt nd no cce warm dry well perfused oriented appropriate anxious ICD10 Worksheet Patient Problems: Problems Problem Status Onset Lumbar radiculopathy, acute Acute Arthrodesis status Acute Low back pain Acute Lumbosacral stenosis Acute
[2017-06-03] MEDS ORDERED: GABAPENTIN 100 MG CAP PO SCH (16:00)
[2017-06-03 16:23] VITALS: BP 113/73; PULSE 68; RESP 16
--- NOTE | 2017-06-03 16:25 | PDDCSUM ---
Discharge Summary Discharge Summary: Dates of service 05/31-06/03/17 Discharge dx: # malaise/chills/sweats # nausea # recent L2/L3 TLIF # radicular pain # h/o p. acnes infection # migraine Consultations: ID, neurosurgery Procedures: Lumbar MRI Hospital course by problem: 36 yo F w/hx of recent L2/3 TLIF and prior issue with infected hardware post l4- s1 fusion # malaise/chills/sweats: continued overnight and patient states she still feels quite badly though perhaps less nauseated. She states that these sxs are now unchanged whether she takes norco or dilaudid. She remains afebrile, cultures remain negative. Suspect this is simply a post operative recovery reaction secondary to pain and pain medications. Reassured by ID and NSG. # recent l2/l3 TLIF: personally reviewed lumbar mri, most c/w postoperative changes, nsg and ID both feel that this does not likely represent infection # radicular pain: patient notes left sided low back pain radiating to her left anterior thigh that has gotten worse since surgery, NSG aware and feels this will improve with time, will increase gabapentin dose and continue prn norco and robaxin--she has stopped taking ms contin as well as dilaudid and will dc those # nausea: continue prn anti emetics, seems that phenergan is most effective 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 Oakes Meds: see EHR > 35 minutes spent in dc more than half in coordination of care
--- NOTE | 2017-06-03 16:26 | PCMIDPN ---
Assessment/Plan: Assessment/Plan: 1. Left LE pain and weakness post surgery, malaise: - blood cx ngtd -does have leukopenia. Reviewed records dating back to 2013 and she had had intermittent periods with leukopenia. - Flu pcr negative. no outdoor exposure from brief time she went home to readmit -MRI images reviewed. post-surgical changes. - Reviewed labs, culture data with patient today. - will defer to Neurosurgery regarding her pain -REcommend f/u cbc, crp in the outpatient to ensure wbc trending up and crp continues to improve. -She expressed readiness to go home today. Discussed and coordinated care with hospitalist team. -Continue to observe off antibiotics. Subjective: FEels better now than this morning. Having some intermittent sweats. Denies sob , abd pain. continues with pain involving left side of her incision, extending down into left buttocks and then wrapping around to lateral thigh and then anteriorly to lower part of thigh. no change with change in positioning. feels left leg is weak that is same as at time of readmit. right thigh pain has resolved. Objective: Vital Signs Temp Pulse Resp BP Pulse Ox 37.2 C 66 18 105/73 97 06/03/17 07:59 06/03/17 07:59 06/03/17 07:59 06/03/17 07:59 06/02/17 23:47 ESR 30 MM/HR (0-20) H 05/31/17 17:26 C-Reactive Protein 19.7 mg/L (<10.0) H 05/31/17 17:26 - Physical Exam General Appearance: alert, no apparent distress Respiratory: lungs clear Cardiac/Chest: regular rate, rhythm Extremities: No swelling Back: other (incision site intact, steri-strips in place. no obvious erythema noted or drainage. pain on palpation to left side of incision which exstend to left buttocks. than unable to elicit the rest of the extension of pain with palpation as per patient it is deeper. ) Skin: No erythema - Time Spent With Patient Time Spent with Patient: greater than 35 minutes Time Spent with Patient: Greater than 35 minutes spent on this patients care, greater than 50% of time spent counseling, educating, and coordinating care regarding the above mentioned plan. ICD10 Worksheet Patient Problems: Problems Problem Status Onset Arthrodesis status Acute Low back pain Acute Lumbar radiculopathy, acute Acute Lumbosacral stenosis Acute
[2017-06-03] MEDS: ACET/CAFFEINE/BUTA FIORICET 1 EACH TAB PO PRN (16:54)
--- NOTE | 2017-06-03 17:07 | ASMTCMCOM ---
CM Note CM Note Notes: Pt is 1 week post TLIF and fusion, was d/c from [facility] independent on 05/30/17. Pt returns due to post op back pain. ID to consult. MRI, urine and blood cultures pending. No therapies ordered. CM to follow. Date Signed: 06/01/2017 04:09 PM Electronically Signed By:Sarai George
--- NOTE | 2017-06-03 17:09 | ASMTCMCOM ---
CM Note CM Note Notes: Reviewed chart, spoke w/ FELECIA Miramontes. Per MD notes, cultures remain negative, pt afebrile - suspect post-op recovery reaction, not infection. Pt may be ready for d/c in next day or two. Anticipate pt will likely d/c home independently when stable. CM will cont to follow for potential needs. Date Signed: 06/03/2017 04:08 PM Electronically Signed By:Eleanor Landa
--- NOTE | 2017-06-03 18:25 | ASDISCHSUM ---
Discharge Information Plan Status:Home with No Needs Medically Cleared to Leave:06/03/2017 Discharge Date:06/03/2017 05:11 PM CM D/C Disposition:Home, Routine, Self-Care ADT D/C Disposition:Home, Routine, Self-Care Projected Discharge Date:06/03/2017 12:00 AM Transportation at D/C:Family Discharge Delay Reason: Follow-Up Date:06/03/2017 12:00 AM Discharge Slot: Final Diagnosis:Malaise, chills, sweats, recent L2/L3 TLIF, radicular pain, nausea Placement Information Patient Contact Information Contact Name:QIAN Relationship: Address:[address] City:[place] Alternate Phone: [facility]/Zip Code:[place] [address] Email: Financial Information Financial Class:HMO and PPO Plans Primary Plan Desc:[employer] Primary Plan Number:[id number] Secondary Plan Desc: Secondary Plan Number: Assessment Information [facility] CM Progress Note CM Note CM Note Notes: Pt is 1 week post TLIF and fusion, was d/c from [facility] independent on 05/30/17. Pt returns due to post op back pain. ID to consult. MRI, urine and blood cultures pending. No therapies ordered. CM to follow. Date Signed: 06/01/2017 04:09 PM Electronically Signed By:Sarai George [facility] CM Progress Note CM Note CM Note Notes: Reviewed chart, spoke w/ FELECIA Miramontes. Per MD notes, cultures remain negative, pt afebrile - suspect post-op recovery reaction, not infection. Pt may be ready for d/c in next day or two. Anticipate pt will likely d/c home independently when stable. CM will cont to follow for potential needs. Date Signed: 06/03/2017 04:08 PM Electronically Signed By:Eleanor Landa Intervention Information Intervention Type:*Incorrect Registration Date of Service:06/01/2017 09:42 AM Patient Type:Inpatient Staff Member:Clarisse Larkin Hours: Discipline: Severity: Comment:
--- NOTE | 2017-06-03 18:26 | ASMTCMCOM ---
CM Note CM Note Notes: Pt discharged home independently w/ family support and no identfied needs. CM avail for any further issues or concerns. Date Signed: 06/03/2017 06:26 PM Electronically Signed By:Eleanor Landa
== END 2017-06-03 17:11 | disposition home or self-care (01) | DRG 948 ==
LOC: INTOOBSV 21:40 → F3N 22:20 → OBSVTOIN 06-03 12:25
PROVIDERS: ADMIT Student in an Organized Health Care Education/Training Program; ATTEND Student in an Organized Health Care Education/Training Program
DX: R53.81 Other malaise (principal); G89.18 Other acute postprocedural pain; R11.0 Nausea; Z98.1 Arthrodesis status; G43.909 Migraine, unspecified, not intractable, without status migrainosus
CPT/HCPCS: 96374; A9585; G0378; J1170; J2405; J2550

== ENCOUNTER → 2017-06-16 | Outpatient (CLI) | payer OTHER ==
[~2017-06-16] MED LIST: GADOBUTROL 10 ML VIAL IVP ONE
== END ==
LOC: FIMAGING 08:35
PROVIDERS: ATTEND Neurological Surgery
DX: M54.16 Radiculopathy, lumbar region (principal)
CPT/HCPCS: A9585

== ENCOUNTER → 2017-07-24 | Outpatient (CLI) | payer OTHER | LOC: FIMAGING 15:24 | PROVIDERS: ATTEND Physical Medicine & Rehabilitation Neuromuscular Medicine | DX: Z09 Encounter for follow-up examination after completed treatment for conditions other than malignant neoplasm (principal); Z98.1 Arthrodesis status ==

== ENCOUNTER → 2017-08-14 | Outpatient (CLI) | payer OTHER | LOC: FIMAGING 07:03 | PROVIDERS: ATTEND Neurological Surgery | DX: M54.5 Low back pain (principal); M51.16 Intervertebral disc disorders with radiculopathy, lumbar region; Z98.1 Arthrodesis status | CPT/HCPCS: A9585 ==

== ENCOUNTER → 2017-09-08 | Outpatient (CLI) | payer OTHER | LOC: FIMAGING 08:02 | PROVIDERS: ATTEND Neurological Surgery | DX: M48.02 Spinal stenosis, cervical region (principal); M50.20 Other cervical disc displacement, unspecified cervical region; Z98.1 Arthrodesis status ==

== ENCOUNTER → 2017-09-15 | Outpatient (CLI) | payer OTHER | LOC: FIMAGING 10:15 | PROVIDERS: ATTEND Physical Medicine & Rehabilitation Neuromuscular Medicine | DX: M50.321 Other cervical disc degeneration at C4-C5 level (principal); M25.519 Pain in unspecified shoulder ==

== ENCOUNTER → 2017-11-08 | Outpatient (CLI) | payer OTHER | LOC: FIMAGING 12:25 | PROVIDERS: ATTEND Family Medicine | DX: Z09 Encounter for follow-up examination after completed treatment for conditions other than malignant neoplasm (principal); M54.5 Low back pain; Z98.1 Arthrodesis status ==

== ENCOUNTER → 2017-11-26 | Outpatient (CLI) | payer OTHER | LOC: FIMAGING 14:41 | PROVIDERS: ATTEND Internal Medicine Interventional Cardiology | DX: M21.752 Unequal limb length (acquired), left femur (principal); M85.812 Other specified disorders of bone density and structure, left shoulder ==

== ENCOUNTER → 2018-07-25 | Outpatient (CLI) | payer MEDICAID, OTHER | LOC: FIMAGING 19:16 | PROVIDERS: ATTEND Family Medicine | DX: M48.07 Spinal stenosis, lumbosacral region (principal); M43.17 Spondylolisthesis, lumbosacral region; M53.87 Other specified dorsopathies, lumbosacral region ==